=== PATIENT | female | born 1960 | race Caucasian/White ===

== ENCOUNTER → 2017-08-25 | Outpatient (CLI) | payer BC ==
[~2017-08-25] MED LIST: LEVOFLOXACIN500 MG PO; LISINOPRIL HCTZ1 TA1 PO; PRAVACHOL20 MG PO; ZITHROMAX Z PA250 MG PO; ZOLOFT25 MG PO
== END | disposition home or self-care (01) ==
LOC: MAMMO 13:08
DX: Z12.31 Encounter for screening mammogram for malignant neoplasm of breast (principal)

== ENCOUNTER → 2019-11-07 | Outpatient (CLI) | payer OTHER | END | disposition home or self-care (01) | LOC: EDSTATUS 09:00 | DX: S46.911A Strain of unspecified muscle, fascia and tendon at shoulder and upper arm level, right arm, initial encounter (principal); X58.XXXA Exposure to other specified factors, initial encounter; Y93.89 Activity, other specified; Y92.89 Other specified places as the place of occurrence of the external cause; Y99.8 Other external cause status ==

== ENCOUNTER → 2020-04-04 | Outpatient (CLI) | payer BC | LOC: COVID19 15:18 | PROVIDERS: ATTEND Internal Medicine | DX: Z20.828 Contact with and (suspected) exposure to other viral communicable diseases (principal) ==

== ENCOUNTER → 2022-06-02 | Outpatient (CLI) | payer BC | END | disposition home or self-care (01) | LOC: MAMMO 05-19 07:30 | PROVIDERS: ATTEND Nurse Practitioner | DX: Z12.31 Encounter for screening mammogram for malignant neoplasm of breast (principal); N64.9 Disorder of breast, unspecified ==

== ENCOUNTER → 2023-07-20 | Outpatient (CLI) | payer BC | END | disposition home or self-care (01) | LOC: MAMMO 10:39 | PROVIDERS: ATTEND Nurse Practitioner | DX: Z12.31 Encounter for screening mammogram for malignant neoplasm of breast (principal); N64.89 Other specified disorders of breast ==

== ENCOUNTER → 2024-07-25 | Outpatient (CLI) | payer BC | END | disposition home or self-care (01) | LOC: MAMMO 07-21 11:00 | PROVIDERS: ATTEND Nurse Practitioner | DX: Z12.31 Encounter for screening mammogram for malignant neoplasm of breast (principal); R92.313 Mammographic fatty tissue density, bilateral breasts ==